=== PATIENT | female | born 1970 | race Caucasian/White ===

== ENCOUNTER → 2016-09-06 | Outpatient (CLI) | payer BC ==
[2016-09-06 13:10] LABS: THYROID STIMULATING HORMONE 9.51 uIU/ml (0.34-5.60)
[2016-09-06 13:17] LABS: FREE THYROXIN (T4) 0.27 ng/dL (0.58-1.64)
== END | disposition home or self-care (01) ==
LOC: CLAB 08:24
PROVIDERS: Family Medicine Sports Medicine
DX: E03.9 Hypothyroidism, unspecified (principal)
CPT/HCPCS: 36415; 84439; 84443; 84480

== ENCOUNTER → 2016-10-31 | Outpatient (CLI) | payer BC ==
[2016-10-31 11:35] LABS: THYROID STIMULATING HORMONE 0.47 uIU/ml (0.34-5.60)
[2016-10-31 11:42] LABS: FREE THYROXIN (T4) 1.52 ng/dL (0.58-1.64)
== END | disposition home or self-care (01) ==
LOC: CLAB 09:43
PROVIDERS: Internal Medicine Endocrinology, Diabetes & Metabolism
DX: E89.0 Postprocedural hypothyroidism (principal)
CPT/HCPCS: 36415; 84439; 84443